=== PATIENT | female | born 2000 | race Caucasian/White ===

== ENCOUNTER 2024-12-14 17:19 | Emergency (ER) | payer MEDICAID, SELFPAY ==
[2024-12-14 17:24] VITALS: BP 142/85; PULSE 112; RESP 18; TEMP 36.8; O2SAT 98
--- OUTSIDE RECORDS SUMMARY | 2024-12-14 17:28 | XMS_ITS | Clinical Summary ---
Author Organization [facility] Address 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
--- OUTSIDE RECORDS SUMMARY | 2024-12-14 17:28 | XMS_ITS | Encounter Summary ---
Author Organization [facility] Address [address] [place] [address] Care Team Providers Care Oleo Hasher And Renderer Name Role Phone Unavailable Primary Care Provider Unavailabl e Encounter Details Date Type Department Care Team (Latest Contact Info) Description 05/12/[address] 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
--- NOTE | 2024-12-14 17:31 | XRR_ITS ---
PROCEDURE INFORMATION: Exam: XR Left Hand Exam date and time: 12/14/2024 5:35 PM Age: 24 years old Clinical indication: Pain; Finger(s); Left; Additional info: Dog bite to lt hand/4th digit x 1 month ago; Pain/swelling/deformity to left 4th digit TECHNIQUE: Imaging protocol: Radiologic exam of the left hand. Views: 3 or more views. COMPARISON: No relevant prior studies available. FINDINGS: Bones/joints: There are multiple irregular radiopaque densities along the volar aspect of the middle 4th phalanx measuring up to 3 mm in size. No cortical irregularity or fracture. Soft tissues: Soft tissue swelling of the 4th digit. XR/XR hand LT min 3V* [id number] IMPRESSION: 1. Soft tissue swelling of the 4th digit. 2. There are multiple irregular radiopaque densities along the volar aspect of the middle 4th phalanx measuring up to 3 mm in size. Foreign bodies? 3. No cortical irregularity or fracture.
--- NOTE | 2024-12-14 17:32 | ED_ITS ---
HPI - Extremity Problem General: Chief complaint: Skin/Abscess/Foreign Body Stated complaint: L hand Ring Finger Swollen Time Seen by Provider: 12/14/24 17:21 Source: patient Mode of arrival: ambulatory Limitations: no limitations History of Present Illness: Patient is a nice 24-year-old female who presents to the ED today for evaluation of a left finger injury that she sustained a month ago after her dog bit her finger. She states her dog was up-to-date on immunizations. She states she cleaned/irrigated the finger well but was never seen for the injury or placed on prophylactic antibiotics. She does feel like the finger was slightly crooked after the bite. She states over the past month she has noticed mild pain and swelling and continued deformity. She has not noticed any erythema or warmth to the digit. No streaking. No discharge. She has no systemic symptoms. Complaint: extremity pain and extremity swelling Onset (ago): week(s) Pain Consistency: constant Location: left and upper extremity (finger) Radiation: none Relieving factors: nothing Exacerbating factors: nothing Associated symptoms: Reports no associated symptoms; Deny fever(s) Related Data Previous Rx's ?Medication ?Instructions ?Recorded amoxicillin 875 mg-potassium 1 tab PO BID #14 tabs clavulanate 125 mg tablet Allergies Allergy/AdvReac Type Severity Reaction Status Date / Time bees Allergy Unknown Uncoded 12/14/24 17:30 Review of Systems Const: Denies: fever(s), chills or body aches Musc: Reports: extremity pain and extremity swelling (L ring finger); Denies: joint redness or joint warmth Skin/Breast: Denies: erythema Neuro: Denies: numbness in extremities or sensory changes Physical Exam Const: COMMON NORMALS: no acute distress, average body habitus, no limitations, healthy appearing, alert and well nourished Extremity: COMMON NORMALS: capillary refill normal GENERAL: Yes normal exam except as noted LEFT UPPER EXTREMITY: Yes hand & digits (no streaking or erythema or warmth) Left hand and digits: Yes inspection (mild deformity of finger noted to proximal phalanx, PIP, middle phalanx), Yes ROM (painless passive ROM of digit; no concern for infectious tenosynovitis) and Yes neurovascular exam (normal) OTHER: she does have a small amount of fluctuance along the side of the digit near PIP joint but no overlying erythema/warmth to suggest abscess Neuro: COMMON NORMALS: moves all extremities, no focal motor deficits and no sensory deficits noted SENSORIUM/ORIENTATION: Yes alert Skin: NARRATIVE SKIN EXAM: see above Course Vital Signs: Vital signs: Vital Signs Temperature 98.3 F 12/14/24 17:24 Pulse Rate 112 H 12/14/24 17:24 Respiratory Rate 18 12/14/24 17:24 Blood Pressure 142/85 12/14/24 17:24 Pulse Oximetry 98 12/14/24 17:24 Oxygen Delivery Me thod Room Air 12/14/24 17:24 MDM - Extremity (Nontraumatic) Medical Decision Making Patient has full range of motion of her finger. She is not complaining of much pain. There is no redness or warmth. At this point I do not have any suspicion for an infectious tenosynovitis, lymphangitis. XR of the finger obtained without evidence for osteonecrosis-still a possibility as this could be early in XR does not always rule this out. Possibility of walled off infection. XR does show a few possible bony fragments-no obvious fracture line but again this is an injury that is a month old. I think she would benefit from seeing Dr. Marc for definitive diagnosis and treatment. Will place on abx. Return precautions discussed. Medical Records I reviewed the patient's medical records. XR interpretation done by ED provider, pending radiology final review Discharge Plan Discharge Patient Disposition: Home Clinical Impression: Dog bite of finger Qualifiers: Encounter type: initial encounter Qualified Code(s): S61.259A - Open bite of unspecified finger without damage to nail, initial encounter Condition: Stable Prescriptions: New amoxicillin-pot clavulanate 875-125 mg tablet 1 tab PO BID Qty: 14 0RF Discharge Orders: Discharge ED (Routine); Ordered 12/14/24 Ordered By: Evelin Godfrey Patient Instructions: Patient Portal & Alex Instructions Activity Restrictions/Additional Instructions: As we discussed, we will have you follow-up with our orthopedic team. Case management referral has been placed for this and you should hear from them early next week. Begin your antibiotics immediately. You need to return to the emergency department for onset of redness, warmth, streaking up your finger or hand, worsening pain, fevers, or any other concerns you may have. Print Language: Liberian Coding Level of Care Code ED [employer] Professional for [employer] Rain
[2024-12-14 18:08] VITALS: RESP 18
--- NOTE | 2024-12-17 07:17 | DCPLANNER ---
messaged ortho for er f/u
== END 2024-12-14 18:13 | disposition home or self-care (01) ==
PROVIDERS: Emergency Provider Physician Assistant
DX: S61.255A Open bite of left ring finger without damage to nail, initial encounter (principal); W54.0XXA Bitten by dog, initial encounter
CPT/HCPCS: 73130; 99283; J9999